=== PATIENT | female | born 1975 | race Caucasian/White ===

== ENCOUNTER → 2022-02-08 07:16 | Outpatient (CLI) | payer OTHER, SELFPAY ==
[2022-02-08 08:27] LABS: Add Manual Diff / Slide Review NO; Basophils Absolute Auto 0 /uL (0-100); Basophils Percent Auto 0.7 % (0-2); Eosinophils Absolute Auto 200 /uL (0-450); Eosinophils Percent Auto 3.8 % (2-4); Hematocrit 35.2 % (36-46); Hemoglobin 12.1 g/dL (12.0-16.0); Lymphocytes Absolute Auto 1600 /uL (1100-4500); Lymphocytes Percent Auto 36.1 % (25-40); Mean Corpuscular HGB Conc 34.5 % (30-36); Mean Corpuscular Volume 89.9 fL (80-100); Monocytes Absolute Auto 200 /uL (0-900); Monocytes Percent Auto 4.6 % (3-14); Neutrophils Absolute Auto 2400 /uL (1500-7000); Neutrophils Percent Auto 54.8 % (50-75); Platelet Count 202 X10^3/uL (150-400); Red Blood Cell Count 3.91 X10^6/uL (4.0-5.2); White Blood Cell Count 4.4 X10^3/uL (4.5-11.0)
[2022-02-08 08:42] LABS: Alanine Aminotransferase 17 IU/L (<35); Albumin Globulin Ratio 1.3 (1.0-2.8); Alkaline Phosphatase 48 U/L (38-126); Aspartate Aminotransferase 22 IU/L (14-36); BUN Creatinine Ratio 14.9 (6-22); Bilirubin Total 0.7 mg/dL (0.2-1.3); Blood Urea Nitrogen 10 mg/dL (7-17); Calcium 8.6 mg/dL (8.4-10.2); Carbon Dioxide 28 mmol/L (22-32); Chloride 107 mmol/L (98-107); Cholesterol 190 mg/dL (140-199); Estimated Glomerular Filt Rate > 60 mL/min (>60); Glucose 87 mg/dL (70-100); HDL Cholesterol 67 mg/dL (40-60); HEMOLYSIS < 15 (0-50); LDL Cholesterol Calculated 112 mg/dL (<100); Potassium 4.1 mmol/L (3.4-5.1); Sodium 139 mmol/L (137-145); Triglycerides 55 mg/dL (35-150)
[2022-02-08 09:14] LABS: Thyroid Stimulating Hormone 1.11 uIU/mL (0.47-4.68)
== END ==
PROVIDERS: PCP Family Medicine; Referring Provider Family Medicine; Visit Provider Family Medicine
DX: Z00.00 Encounter for general adult medical examination without abnormal findings (principal)
CPT/HCPCS: 36415; 80053; 80061; 84443; 85025

== ENCOUNTER → 2022-02-16 17:07 | Outpatient (CLI) | payer OTHER, SELFPAY ==
--- NOTE | 2022-02-16 17:09 | DI.RAD.S_ITS ---
PROCEDURE: XR LUMBAR SPINE 2-3V INDICATIONS: chronic cough TECHNIQUE: 3 views of the lumbar spine were acquired. COMPARISON: None. FINDINGS: Bones: 5 [id number] vertebrae are present. There is normal bony alignment. No vertebral body compression fractures. No suspicious bony lesions. Disc space narrowing, endplate degenerative changes, Soft tissues: Overlying bowel gas pattern is normal. No suspicious soft tissue calcifications. IMPRESSION: 1. Severe degenerative disc disease at L4-5 and L5-S1. 2. No acute traumatic abnormality. Dictated by: Juan Carlos Ware M.D. on 02/17/2022 at 8:40 Approved by: Juan Carlos Ware M.D. on 02/17/2022 at 8:44
--- NOTE | 2022-02-16 17:09 | DI.RAD.S_ITS ---
PROCEDURE: XR CHEST 2V INDICATIONS: chronic cough TECHNIQUE: 2 views of the chest were acquired. COMPARISON: None. FINDINGS: Surgical changes and devices: None. Lungs and pleura: Lungs are clear. No pleural effusions or pneumothorax. Mediastinum: Mediastinal contours are normal. Heart size is normal. Bones and chest wall: No suspicious bony abnormalities. Soft tissues appear unremarkable. IMPRESSION: No acute cardiopulmonary abnormality. Dictated by: Juan Carlos Ware M.D. on 02/17/2022 at 8:39 Approved by: Juan Carlos Ware M.D. on 02/17/2022 at 8:40
== END ==
PROVIDERS: PCP Family Medicine; Referring Provider Family Medicine; Visit Provider Family Medicine
DX: M51.36 Other intervertebral disc degeneration, lumbar region (principal); M51.37 Other intervertebral disc degeneration, lumbosacral region; R05.9 Cough, unspecified; M54.50 Low back pain, unspecified
CPT/HCPCS: 71046; 72100

== ENCOUNTER → 2022-03-21 15:10 | Outpatient (CLI) | payer OTHER, SELFPAY | PROVIDERS: PCP Family Medicine; Referring Provider Family Medicine; Visit Provider Family Medicine | DX: Z12.31 Encounter for screening mammogram for malignant neoplasm of breast (principal) ==

== ENCOUNTER → 2022-03-30 14:28 | Outpatient (CLI) | payer OTHER, SELFPAY ==
--- NOTE | 2022-03-30 14:30 | DI.MG.S_ITS ---
BILATERAL DIGITAL DIAGNOSTIC MAMMOGRAM 3D/2D: 03/30/2022 CLINICAL: Short term follow up of the left breast, due for bilateral imaging. Comparison is made to exam dated: 07/08/2020 mammogram - outside location. Both breasts are heterogeneously dense, which may obscure small masses (category c / 51-75% glandular tissue). There is a biopsy clip in the left breast. No significant masses, calcifications, or other findings are seen in either breast. There has been no significant interval change. IMPRESSION: BENIGN There is no mammographic evidence of malignancy. A 1 year screening mammogram is recommended. Based on the Tyrer Cuzick model (a risk assessment model) the patient's lifetime risk is 12.7% and her 10 year risk is 2.3%. According to the ACR, ACS, and NCCN guidelines, an annual breast MRI exam along with mammogram is recommended if the patient's lifetime risk is 20% or greater. This exam was interpreted at Station ID: [id number]. NOTE: For mammograms, a report in lay terms will be sent to the patient. Approximately 15% of breast malignancies will not be visualized mammographically. In the management of a palpable breast mass, a negative mammogram must not discourage biopsy of a clinically suspicious lesion. Electronically Signed By: Fan castillo/avery:03/30/2022 14:52:56 letter sent: Normal Exam ACR BI-RADS Category 2: Benign Finding(s) 3342F
== END ==
PROVIDERS: PCP Family Medicine; Referring Provider Family Medicine; Visit Provider Family Medicine
DX: N63.20 Unspecified lump in the left breast, unspecified quadrant (principal); R92.8 Other abnormal and inconclusive findings on diagnostic imaging of breast
CPT/HCPCS: 77066; G0279

== ENCOUNTER → 2022-11-24 15:46 | Outpatient (CLI) | payer OTHER, SELFPAY ==
--- NOTE | 2022-11-24 15:48 | DI.RAD.S_ITS ---
PROCEDURE: XR ELBOW RT MIN 3V INDICATIONS: eval and treat R elbow pain TECHNIQUE: 3 views of the elbow were acquired. COMPARISON: None. FINDINGS: Bones: No fractures or dislocations. No suspicious bony lesions. Soft tissues: No elbow joint effusion. No suspicious soft tissue calcifications. IMPRESSION: No trauma or joint effusion found. Dictated by: Fausto Baker M.D. on 11/24/2022 at 16:33 Approved by: Fausto Baker M.D. on 11/24/2022 at 16:33
[2022-11-24 16:48] LABS: Uric Acid 5.1 mg/dL (2.5-6.2)
[2022-11-24 17:04] LABS: Rheumatoid Factor < 8.6 IU/mL (<12.0)
[2022-11-24 17:45] LABS: Erythrocyte Sedimentation Rate 13 MM/HR (0-20)
[2022-11-25 20:39] LABS: CCP Antibodies IgG/IgA 2 units (0-19)
[2022-11-29 17:13] LABS: ANA Screen, IFA Negative (.)
== END ==
PROVIDERS: PCP Family Medicine; Referring Provider Family Medicine; Visit Provider Family Medicine
DX: M19.90 Unspecified osteoarthritis, unspecified site (principal); M77.9 Enthesopathy, unspecified; Q79.60 Ehlers-Danlos syndrome, unspecified
CPT/HCPCS: 36415; 73080; 84550; 85651; 86038; 86200; 86430

== ENCOUNTER → 2024-03-06 14:56 | Outpatient (CLI) | payer OTHER, SELFPAY ==
--- NOTE | 2024-03-06 14:57 | DI.MG.S_ITS ---
BILATERAL DIGITAL SCREENING MAMMOGRAM 3D/2D WITH CAD: 03/06/2024 CLINICAL: Routine screening. Comparison is made to exams dated: 03/30/2022 mammogram - [facility] and 07/08/2020 mammogram - outside [facility]. The breasts are heterogeneously dense, which may obscure small masses (category c / 51-75% glandular tissue). Current study was also evaluated with a Computer Aided Detection (CAD) system. No significant masses, calcifications, or other findings are seen in either breast. There has been no significant interval change. IMPRESSION: NEGATIVE There is no mammographic evidence of malignancy. A 1 year screening mammogram is recommended. Based on the Tyrer Cuzick model (a risk assessment model) the patient's lifetime risk is 12.8% and her 10 year risk is 2.6%. According to the ACR, ACS, and NCCN guidelines, an annual breast MRI exam along with mammogram is recommended if the patient's lifetime risk is 20% or greater. This exam was interpreted at Station ID: [id number]. NOTE: For mammograms, a report in lay terms will be sent to the patient. Approximately 15% of breast malignancies will not be visualized mammographically. In the management of a palpable breast mass, a negative mammogram must not discourage biopsy of a clinically suspicious lesion. Electronically Signed By: Lashay Avila M.D., Ph.D. christoph/avery:03/07/2024 09:27:31 letter sent: Normal Exam ACR BI-RADS Category 1: Negative 3341F
== END ==
LOC: MAMMO 14:56
PROVIDERS: PCP Family Medicine; Referring Provider Student in an Organized Health Care Education/Training Program; Visit Provider Student in an Organized Health Care Education/Training Program
DX: Z12.31 Encounter for screening mammogram for malignant neoplasm of breast (principal); R92.333 Mammographic heterogeneous density, bilateral breasts
CPT/HCPCS: 77063; 77067

== ENCOUNTER 2024-12-15 06:39 | Emergency (ER) | payer OTHER, SELFPAY ==
[2024-12-15] VITALS (7 sets, daily range): BP systolic 98–100; BP diastolic 55–59; PULSE 63–76; RESP 22; TEMP 36.6–36.8; O2SAT 97–99; BMI 18.0
[2024-12-15] MEDS: ONDANSETRON 4 MG/2 ML INJ IV (07:01)
[2024-12-15 07:22] LABS: Alanine Aminotransferase 181 IU/L (<35); Albumin 4.2 g/dL (3.5-5.0); Albumin Globulin Ratio 1.2 (1.0-2.8); Alkaline Phosphatase 94 U/L (38-126); Aspartate Aminotransferase 137 IU/L (14-36); BUN Creatinine Ratio 8.3 (6-22); Bilirubin Total 0.5 mg/dL (0.2-1.3); Blood Urea Nitrogen 5 mg/dL (7-17); Carbon Dioxide 29 mmol/L (22-32); Chloride 103 mmol/L (98-107); Estimated Glomerular Filt Rate > 60 mL/min (>60); Globulin 3.5 g/dL (1.7-4.1); Glucose 115 mg/dL (70-99); HEMOLYSIS < 15 (0-50); Potassium 3.4 mmol/L (3.4-5.1); Sodium 140 mmol/L (137-145); Total Protein 7.7 g/dL (6.3-8.2)
[2024-12-15 07:24] LABS: Basophils Absolute Auto 0 /uL (0-100); Basophils Percent Auto 0.2 % (0-2); Eosinophils Absolute Auto 100 /uL (0-450); Eosinophils Percent Auto 1.8 % (2-4); Hematocrit 38.7 % (36-46); Hemoglobin 13.1 g/dL (12.0-16.0); Lymphocytes Absolute Auto 1300 /uL (1100-4500); Lymphocytes Percent Auto 16.2 % (25-40); Mean Corpuscular HGB Conc 33.9 % (30-36); Mean Corpuscular Hemoglobin 30.4 PG (26-34); Mean Corpuscular Volume 89.8 fL (80-100); Monocytes Absolute Auto 600 /uL (0-900); Monocytes Percent Auto 7.9 % (3-14); Neutrophils Absolute Auto 5700 /uL (1500-7000); Neutrophils Percent Auto 73.9 % (50-75); Platelet Count 191 X10^3/uL (150-400); Red Blood Cell Count 4.31 X10^6/uL (4.0-5.2); Red Cell Distribution Width 12.5 % (11.6-14.8); White Blood Cell Count 7.7 X10^3/uL (4.5-11.0)
[2024-12-15 07:26] LABS: Add Manual Diff / Slide Review NO; RBC Morphology Normal Morphology
--- NOTE | 2024-12-15 07:34 | ED.NAVMDI ---
HPI - Nausea/Vomiting/Diarrhea General Chief complaint: Nausea/Vomiting/Diarrhea Stated complaint: Sick for 5 days Possible Gurd Time Seen by Provider: 12/15/24 07:31 Source: patient and family Mode of arrival: Wheelchair Limitations: no limitations History of Present Illness HPI Narrative: 49-year-old female with no reported medical issues presents with complaint of initially upper respiratory symptoms of nasal congestion and cough which has been progressing over the past 5 days. Patient is started having nausea and vomiting several days ago. She states it seemed to be little bit post-tussive but she was having nausea. She was had subjective fevers at home. She was developed a green productive sputum. She denies any chest pain or shortness of breath. She denies any abdominal back or flank pain. Notes little bit of heartburn sensation in the evenings. She states no diarrhea. No constipation. No dysuria urgency or frequency no back or flank pain. Patient states she was started a little bit dizzy which has been present. She states no daily medications. Has had prior back surgery proximally 10 years ago. No tobacco, reports allergy to alcohol, no recreational drugs. Patient does note she has been taking quite a bit of [id number]-[id number] cough medication states this might be contributing of the dizziness. She was accompanied by her spouse. Related Data Previous Rx's ?Medication ?Instructions ?Recorded amoxicillin 875 mg-potassium 1 tab PO BID #20 tabs 12/15/24 clavulanate 125 mg tablet ondansetron 4 mg disintegrating 4 mg PO Q6H PRN nausea and 12/15/24 tablet vomiting #10 tabs Allergies Allergy/AdvReac Type Severity Reaction Status Date / Time alcohol Allergy Severe Hard time Verified 03/04/24 15:20 breathing, itching, rash Review of Systems Review of Systems ROS Unobtainable: All systems reviewed & are unremarkable except as noted in HPI and below Patient History Medical History Family history of rheumatoid arthritis Right elbow pain Left knee pain Well adult exam Low back pain Cough Anemia Left breast mass Allergies (~1999) Sciatica (~2016) Surgical History Anesthesia History of microdiscectomy (~05/24/17) Family History Father Cancer Congestive heart failure Stroke Mother Diabetes mellitus Hypertension Brother Diabetes mellitus Hyperlipidemia Brother Diabetes mellitus Hyperlipidemia Sister Adenomyosis Social History Smoking Status: Never smoker Smoking Status: Never smoker Exam Narrative Exam Narrative: GEN: well nourished, well appearing Female, alert and oriented x 3, patient appears to be in mild distress. HEENT: Atraumatic, pupils are equal round reactive to light, extraocular movements are intact, nares nasal congestion,there is no conjunctival pallor. Throat is clear without any exudates, mild erythema, no tonsillar enlargement or uvular deviation, patient is slightly hoarse. HEART: Regular rate and rhythm without murmur, clicks, rubs. Pulses are equal in upper and lower extremities. No edema. LUNGS:Lungs clear to auscultation, no wheezes, rales, crackles, chest moves symmetrically, Patient has persistent dry cough on examination. ABD:bowel sounds normal, soft, non-tender, no guarding, rebound, rigidity, no masses noted, no hepatosplenomegaly :No CVA tenderness MSCL: Non-tender, no muscle atrophy, muscles strength 5/5 upper and lower extremities, full range of motion. NEURO:CN 2-12 intact, sensation normal. SKIN: No rash, erythema or other skin changes. Initial Vital Signs Initial Vital Signs: Vital Signs Temperature 97.8 F 12/15/24 06:52 Pulse Rate 63 12/15/24 06:52 Respiratory Rate 22 12/15/24 06:52 Blood Pressure 100/59 L 12/15/24 06:52 Pulse Oximetry 97 12/15/24 06:52 Oxygen Delivery Method Room Air 12/15/24 06:52 Course Orders Ordered: ED Orders 12/15/24 06:55 Complete Blood Count AUTO DIFF Stat Comprehensive Metabolic Panel Stat Lipase Stat 12/15/24 07:52 Ictotest Urine Stat Urine Microscopic Stat 12/15/24 08:17 Stool Culture Stat 12/15/24 08:24 Chest [XR chest 2V] Stat 12/15/24 08:30 Covid-19 + FLU A/B + RSV - PCR Stat Discontinued Medications Sodium Chloride (Normal Saline 0.9%) 1,000 mls @ 1,000 mls/hr IV BOLUS ONE Stop: 12/15/24 07:55 Last Infusion: 12/15/24 09:37 Dose: Infused Documented By: Admin: 12/15/24 07:43 Dose: 1,000 mls/hr Documented By: ANIBAL Ondansetron HCl (Ondansetron 4 Mg/2 Ml Inj) 4 mg IV NOW ONE Stop: 12/15/24 06:57 Last Admin: 12/15/24 07:01 Dose: 4 mg Documented By: KASHIF Vital Signs Vital signs: Vital Signs - 8 hr 12/15/24 06:52 12/15/24 07:15 12/15/24 07:30 Temperature 97.8 F Pulse Rate 63 68 76 Respiratory Rate 22 Blood Pressure 100/59 L Pulse Oximetry 97 98 98 Oxygen Delivery Method Room Air 12/15/24 07:30 12/15/24 08:00 12/15/24 08:30 Temperature Pulse Rate 69 Respiratory Rate Blood Pressure 98/58 L Pulse Oximetry 99 99 Oxygen Delivery Method 12/15/24 09:00 12/15/24 09:15 12/15/24 09:15 Temperature 98.2 F Pulse Rate 73 74 Respiratory Rate Blood Pressure 99/55 L Pulse Oximetry 99 99 Oxygen Delivery Method MDM - Nausea/Vomiting/Diarrhea Lab Data 12/15/24 06:55 12/15/24 06:55 Labs: Lab Results 12/15/24 12/15/24 12/15/24 Range/Units 06:55 07:52 08:30 WBC 7.7 (4.5-11.0) X10^3/uL RBC 4.31 (4.0-5.2) X10^6/uL Hgb 13.1 (12.0-16.0) g/dL Hct 38.7 (36-46) % MCV 89.8 (80-100) fL MCH 30.4 (26-34) PG MCHC 33.9 (30-36) % RDW 12.5 (11.6-14.8) % Plt Count 191 (150-400) X10^3/uL Neut % (Auto) 73.9 (50-75) % Lymph % (Auto) 16.2 L (25-40) % [place] % (Auto) 7.9 (3-14) % Eos % (Auto) 1.8 L (2-4) % Baso % (Auto) 0.2 (0-2) % Neut # (Auto) 5700 (7030-9440) /uL Lymph # (Auto) 1300 (8172-4478) /uL [place] # (Auto) 600 (0-900) /uL Eos # (Auto) 100 (0-450) /uL Baso # (Auto) 0 (0-100) /uL RBC Morphology Normal morphology Sodium 140 (137-145) mmol/L Potassium 3.4 (3.4-5.1) mmol/L Chloride 103 (98-107) mmol/L Carbon Dioxide 29 (22-32) mmol/L BUN 5 L (7-17) mg/dL Creatinine 0.60 (0.52-1.04) mg/dL Estimated GFR > 60 (>60) mL/min BUN/Creatinine Ratio 8.3 (6-22) Glucose 115 H (70-99) mg/dL Calcium 9.0 (8.4-10.2) mg/dL Total Bilirubin 0.5 (0.2-1.3) mg/dL AST 137 H (14-36) IU/L ALT 181 H (<35) IU/L Alkaline Phosphatase 94 (38-126) U/L Total Protein 7.7 (6.3-8.2) g/dL Albumin 4.2 (3.5-5.0) g/dL Globulin 3.5 (1.7-4.1) g/dL Albumin/Globulin Ratio 1.2 (1.0-2.8) Lipase 36 (23-300) U/L Ur Bilirubin Confirm Negative (Negative) Urine RBC 1-5/hpf (0-5/HPF) Urine WBC 1-5/hpf (0-5/HPF) Ur Squamous Epith Cells 1-5 /hpf (0-5/HPF) Urine Bacteria Occasional (0-1) (None) Ur Culture Indicated? Cult not indicated Vol Urine Centrifuged 10ml (spun) SARS-CoV-2 (PCR) Negative (Negative) Influenza A (RT-PCR) Flu a negative (NEGATIVE) Influenza B (RT-PCR) Flu b negative (NEGATIVE) RSV (PCR) Negative (Negative) Point of Care Testing Test Results Negative Glucose POC 86 Urine Dip Bedside Urine Glucose Negative Bedside Urine Bilirubin + 1 Bedside Urine Ketone - Negative Urine Specific [place] 1.015 Bedside Urine Occult Blood - Negative Bedside Urine pH 6.0 Bedside Urine Protein +/- 15 Bedside Urine Urobilinogen - Negative Bedside Urine Nitrite - Negative Bedside Urine Leukocytes + 70 Esterase MDM Narrative Medical decision making narrative: CBC shows normal white count, hemoglobin and platelets. Normal electrolytes, BUN creatinine glucose is 115, [place] [id number], bilirubin is normal, lipase is 36. urine +1 bilirubin, protein, leukocyte esterase. Urine micro negative for bilirubin, 1-5 RBCs 1-5 WBCs 1-5 squamous, 1 bacteria. Chest x-ray is negative for acute change COVID/influenza/RSV is negative Patient received Zofran. patient states this has been very helpful. initial systolic blood pressure was 100 but review of patient's prior hospital visits appears to be somewhat baseline. Patient has been at bedside state they checked her blood pressure at home and this is also normal blood pressure range for her. discussed with the patient could have a little bit of upper respiratory infection but has had green productive sputum, fevers for the past 5 days discussion I suspect she may have clinical pneumonia and discussed starting an oral antibiotic. patient was agreeable. We will also give a short term prescription for ondansetron as she was found this to be significantly helpful. She was had quite a bit of cough she defers anything such as codeine for her cough continue with [id number] remedies. Discharge Plan Departure Patient Disposition: Home Clinical Impression: Pneumonia Activity Restrictions/Additional Instructions: Follow up for recheck if you are not having any improvement over the next several days. Your chest x-ray today is negative, you may have a viral illness but I am treating you for a clinical pneumonia. You can take ondansetron 1 tablet every 6 hours as needed for nausea. Take oral antibiotics until completed. Prescription sent to [facility] in [place]. Please return if you are having worsening symptoms, new chest pain, increasing shortness of breath, new or increasing abdominal back or flank pain, persistent vomiting, lightheadedness or passing out, black or bloody stools or other new or concerning changes. Prescriptions: New ondansetron 4 mg tablet,disintegrating 4 mg PO Q6H PRN (Reason: nausea and vomiting) Qty: 10 0RF amoxicillin-pot clavulanate 875-125 mg tablet 1 tab PO BID Qty: 20 0RF Referrals: Dean,Artie T, DO [Primary Care Provider, Family Practice] Stand Alone Forms: Patient Portal/API
[2024-12-15] MEDS: SODIUM CHLORIDE 0.9% 1,000 ML 1000 ML IV (07:43)
[2024-12-15 07:52] LABS: Lipase 36 U/L (23-300)
--- NOTE | 2024-12-15 08:24 | DI.RAD.S_ITS ---
PROCEDURE: XR CHEST 2V INDICATIONS: cough, green sputum, fevers x 5 days, started uri TECHNIQUE: 2 views of the chest were acquired. COMPARISON: [facility], CR, XR CHEST 2V, 02/16/2022, 17:13. FINDINGS: Surgical changes and devices: None. Lungs and pleura: Lungs are clear. No pleural effusions or pneumothorax. Mediastinum: Mediastinal contours are normal. Heart size is normal. Bones and chest wall: No suspicious bony abnormalities. Soft tissues appear unremarkable. IMPRESSION: No acute cardiopulmonary abnormality is seen. Dictated by: Valentín Ledezma M.D. on 12/15/2024 at 8:43 Approved by: Valentín Ledezma M.D. on 12/15/2024 at 8:43
[2024-12-15 08:33] LABS: Ictotest Urine Negative (Negative)
[2024-12-15 08:34] LABS: Bacteria Urine Occasional (0-1); Culture Indicated Urine Cult Not Indicated; RBC Urine 1-5/HPF (0-5/HPF); Squamous Epithelial Cell Urine 1-5 /HPF (0-5/HPF); Urine Volume 10mL (spun); WBC Urine 1-5/HPF (0-5/HPF)
[2024-12-15 09:14] LABS: Influenza A - CEPHEID Flu A NEGATIVE (NEGATIVE); Influenza B - CEPHEID Flu B NEGATIVE (NEGATIVE); Respiratory Syncytial Virus Negative (Negative)
[2024-12-15 09:17] LABS: COVID-19 CEPHEID 4-PLEX PCR Negative (Negative)
== END 2024-12-15 09:38 | disposition home or self-care (01) ==
PROVIDERS: Emergency Provider Emergency Medicine; PCP Family Medicine
DX: J18.9 Pneumonia, unspecified organism (principal)
CPT/HCPCS: 0241U; 36415; 71046; 80053; 81003; 81015; 81025; 82962; 83690; 85025; 96361; 96374; 99284; J2405

== ENCOUNTER → 2025-05-20 12:27 | Outpatient (CLI) | payer OTHER, SELFPAY ==
--- NOTE | 2025-05-20 12:28 | DI.MG.S_ITS ---
MM screening mammo BI: 05/20/2025. BI-RADS: 1 CLINICAL: 50-year old female for bilateral screening mammogram. Tyrer-Cuzick lifetime risk of 13.2%. No personal or first-degree family history of breast cancer. The patient had a prior left breast biopsy. PRIOR EXAMS 03/06/2024, 03/30/2022. MAMMOGRAPHY TECHNIQUE: 2D and 3D (tomosynthesis) digital mammographic views obtained, with additional images as needed for full coverage. Current study was also evaluated with a Computer Aided Detection (CAD) system. DENSITY D. The breasts are extremely dense, which lowers the sensitivity of mammography. MAMMOGRAPHY FINDINGS Bilateral: No suspicious mass, asymmetry, microcalcification, or other abnormality seen. IMPRESSION: * No evidence of malignancy. RECOMMENDATIONS Bilateral * Annual screening mammography. OVERALL ASSESSMENT CATEGORY BI-RADS-1: Negative. The [employer] recommends annual screening mammography beginning at age 40 for women with average risk of breast cancer. ELECTRONICALLY SIGNED: Megan Carrillo M.D. on 05/22/2025 at 06:38:27 PM PT Interpreting Station ID: [id number]
== END ==
LOC: MAMMO 12:27
PROVIDERS: PCP Family Medicine; Referring Provider Family Medicine; Visit Provider Family Medicine
DX: Z12.31 Encounter for screening mammogram for malignant neoplasm of breast (principal); R92.333 Mammographic heterogeneous density, bilateral breasts
CPT/HCPCS: 77063; 77067